=== PATIENT | female | born 1990 | race Two or more races ===

== ENCOUNTER 2023-10-22 15:07 | Emergency (ER) | payer OTHER ==
[2023-10-22 15:19] VITALS: BP 125/72; O2SAT 100
[2023-10-22 15:28] LABS: BASOPHILS % (AUTO) 0.2 %; EOSINOPHILS % (AUTO) 0.1 %; HCT - HEMATOCRIT 46.8 % (37.0-47.0); HGB - HEMOGLOBIN 15.2 g/dL (12.0-16.0); LYMPHOCYTES # (AUTO) 0.9 10^3/uL (1.5-3.5); LYMPHOCYTES % (AUTO) 7.7 %; MEAN CORPUSCULAR HEMOGLOBIN 29.5 pg (27.0-31.0); MEAN CORPUSCULAR HGB CONC 32.5 g/dL (32.0-36.0); MEAN CORPUSCULAR VOLUME 90.9 fL (81.0-99.0); MEAN PLATELET VOLUME 10.6 fL (7.9-10.8); MONOCYTES # (AUTO) 0.4 10^3/uL (0.0-1.0); MONOCYTES % (AUTO) 3.5 %; NEUTROPHILS # (AUTO) 10.2 10^3/uL (1.5-6.6); NEUTROPHILS % (AUTO) 88.3 %; PLT - PLATELET COUNT 383 10^3/uL (130-450); RED BLOOD COUNT 5.15 10^6/uL (4.20-5.40); RED CELL DISTRIBUTION WIDTH 12.4 % (12.0-15.0); WHITE BLOOD COUNT 11.6 x10^3/uL (4.8-10.8)
[2023-10-22 15:41] LABS: ALBUMIN 4.6 g/dL (3.2-5.5); ALBUMIN/GLOBULIN RATIO 1.2 (1.0-2.2); ALKALINE PHOSPHATASE 63 IU/L (42-121); ALT ALANINE AMINOTRANSFERASE 19 IU/L (10-60); AST ASPARTATE AMINOTRANSFERASE 24 IU/L (10-42); BILIRUBIN,TOTAL 0.4 mg/dL (0.2-1.0); BUN - BLOOD UREA NITROGEN 14 mg/dL (6-20); CALCIUM 9.7 mg/dL (8.5-10.3); CARBON DIOXIDE - CO2 27 mmol/L (21-32); CHLORIDE 105 mmol/L (101-111); CREATININE 0.8 mg/dL (0.6-1.3); GFR - MDRD 83 (>89); GLUCOSE 112 mg/dL (74-104); POTASSIUM 3.6 mmol/L (3.5-4.5); SODIUM 139 mmol/L (135-145); TOTAL PROTEIN 8.4 g/dL (6.4-8.9)
[2023-10-22 15:43] LABS: BILIRUBIN,URINE SMALL (NEGATIVE); GLUCOSE, URINE (UA) NEGATIVE (NEGATIVE); KETONES,URINE (UA) 40 mg/dL (NEGATIVE); LEUKOCYTE ESTERASE, URINE NEGATIVE (NEGATIVE); NITRITE,URINE NEGATIVE (NEGATIVE); OCCULT BLOOD,URINE NEGATIVE (NEGATIVE); PH,URINE 5.5 PH (5.0-7.5); PROTEIN,URINE TRACE mg/dL (NEGATIVE); UROBILINOGEN,URINE 0.2 (NORMAL) E.U./dL (NORMAL)
[2023-10-22 15:44] LABS: CLARITY,URINE CLEAR (CLEAR)
[2023-10-22 15:45] LABS: HCG UR QUAL NEGATIVE
[2023-10-22 15:46] LABS: LIPASE < 10 U/L (11-82)
--- NOTE | 2023-10-22 16:21 | ED Physician Documentation ---
PD HPI ABD PAIN - Stated complaint Stated Complaint: ABD PX,NAUSEA,DIARRHEA - Chief complaint Chief Complaint: Abd Pain - History obtained from History obtained from: Patient - Additional information Additional information: 33-year-old woman was feeling fine last night. She was awoken this morning by vomiting and diarrhea. The vomiting started around 3 AM and the diarrhea started around 8 AM. This was followed by upper abdominal cramps, waxing and waning. The diarrhea and vomiting if faded away. She went to the walk-in clinic where there was a concern for appendicitis and sent here for further evaluation and treatment. PD PAST MEDICAL HISTORY - Past Medical History Past Medical History: No Cardiovascular: None Respiratory: None Neuro: None Endocrine/Autoimmune: None GI: None STREET [employer]: None : None HEENT: None Psych: None Musculoskeletal: None Derm: None - Past Surgical History Past Surgical History: No - Present Medications Home Medications: Ambulatory Orders Medication Instructions Recorded Confirmed Dicyclomine [Bentyl] 1 - 2 tab PO QID PRN #10 cap 10/22/23 Ondansetron Odt [Zofran] 4 mg TL Q6H PRN #10 tablet 10/22/23 - Allergies Allergies/Adverse Reactions: Allergies Allergy/AdvReac Type Severity Reaction Status Date / Time No Known Drug Allergies Allergy Verified 10/22/23 15:14 - Social History Does the pt smoke?: No Smoking Status: Never smoker Does the pt drink ETOH?: Yes Does the pt have substance abuse?: No - Immunizations Immunizations are current?: Yes - POLST Patient has POLST: No PD ED PE NORMAL - Vitals Vital signs reviewed: Yes - General General: Alert and oriented X 3, No acute distress - Abdomen Abdomen: Normal bowel sounds, Soft, Other (She has mild upper abdominal tenderness. She is completely nontender including to deep palpation in the right lower quadrant.) - Neuro Neuro: Alert and oriented X 3, Normal speech Results - Vitals Vitals: Vital Signs - 24 hr 10/22/23 15:14 Temperature 36.8 C Heart Rate 86 Respiratory 16 Rate Blood Pressure 125/72 O2 Saturation 100 Oxygen O2 Source Room air - Labs Labs: Laboratory Tests 10/22/23 10/22/23 10/22/23 15:22 15:24 15:24 WBC 11.6 H RBC 5.15 Hgb 15.2 Hct 46.8 MCV 90.9 MCH 29.5 MCHC 32.5 RDW 12.4 Plt Count 383 MPV 10.6 Neut # (Auto) 10.2 H Lymph # (Auto) 0.9 L [place] # (Auto) 0.4 Eos # (Auto) 0.0 Baso # (Auto) 0.0 Absolute Nucleated RBC 0.00 Nucleated RBC % 0.0 Sodium 139 Potassium 3.6 Chloride 105 Carbon Dioxide 27 Anion Gap 7.0 BUN 14 Creatinine 0.8 Estimated GFR (MDRD) 83 L Glucose 112 H Calcium 9.7 Total Bilirubin 0.4 AST 24 ALT 19 Alkaline Phosphatase 63 Total Protein 8.4 Albumin 4.6 Globulin 3.8 Albumin/Globulin Ratio 1.2 Lipase < 10 L Urine Color YELLOW Urine Clarity CLEAR Urine pH 5.5 Ur Specific [place]onson >=1.030 H Urine Protein TRACE Urine Glucose (UA) NEGATIVE Urine Ketones 40 H Urine Occult Blood NEGATIVE Urine Nitrite NEGATIVE Urine Bilirubin SMALL H Urine Urobilinogen 0.2 (NORMAL) Ur Leukocyte Esterase NEGATIVE Ur Microscopic Review NOT INDICATED Urine Culture Comments NOT INDICATED Urine HCG, Qual NEGATIVE PD Medical Decision Making - ED course ED course: Clinically I do not think she has appendicitis, she does have a mild white count but she is completely nontender in the right lower quadrant. CMP and urinalysis were otherwise unremarkable except for signs of dehydration on the urinalysis. test was negative. On reexamination at 5:07 PM her pain is much better. She continues to be completely nontender to vigorous palpation of the right lower quadrant and has no pain there. So despite the very mild leukocytosis I do not think she has appendicitis. Otherwise, her lab work was notable for a normal CMP and urine with signs of concentration. Departure - Departure Disposition: 01 Home, Self Care Clinical Impression: Gastroenteritis Condition: Good Record reviewed to determine appropriate education?: Yes Instructions: ED Gastroenteritis Viral Prescriptions: Dicyclomine [Bentyl] 1 - 2 tab PO QID PRN #10 cap PRN Reason: Abdominal Pain Ondansetron Odt [Zofran] 4 mg TL Q6H PRN #10 tablet PRN Reason: Nausea / Vomiting Comments: You are seen today for what sounds like gastroenteritis, a "stomach flu". The physicians surgery assistant at the walk-in clinic was worried about appendicitis, but I have examined you twice and you are completely nontender in the right lower quadrant so this seems extremely unlikely. That said if you are not better by noon tomorrow or if the pain goes to the spot where I showed you please return for reevaluation. Forms: PCP List, Activity restrictions
[2023-10-22] MEDS: SODIUM CHLORIDE 0.9% 1,000 ML IV STA (16:32)
[2023-10-22] MEDS: KETOROLAC 15 MG/ML VIAL IVP STA (16:41)
== END 2023-10-22 17:32 | disposition home or self-care (01) ==
LOC: ED 15:07
DX: K52.9 Noninfective gastroenteritis and colitis, unspecified (principal)
CPT/HCPCS: 36415; 80053; 81001; 81003; 81025; 83690; 85025; 87086; 96374; 99283